=== PATIENT | female | born 1990 | race Caucasian/White ===

== ENCOUNTER 2018-12-13 17:36 | Emergency (ER) | payer OTHER ==
[~2018-12-13] VITALS: Ht 157.5 cm; Wt 50.0 kg
--- NOTE | 2018-12-13 18:00 | ERD ---
ER Documentation Chief Complaint Chief Complaint Passed out HPI Patient is a 28-year-old female who presents with syncope versus seizure. The patient was brought in by ambulance. The patient was getting a routine blood draw at the doctor's office when she felt lightheaded and then "blacked out". There is a report of a "seizure" from the clinic however the patient is never had a seizure before. She did not have any postictal period. She felt like she was having a dream. Blood sugar was 113 by paramedics. She is 13 weeks but has no vaginal bleeding or abdominal pain. She has had syncope in the past with blood draw. She does not remember the name of her doctor. ROS All systems reviewed and are negative except as per history of present illness. Allergies Allergies: Coded Allergies: No Known Allergy (Unverified , 12/13/18) PMhx/Soc Medical and Surgical Hx: pt denies Medical Hx FmHx Family History: No coronary disease Physical Exam Physical Exam Const: No acute distress Head: Atraumatic Eyes: Normal Conjunctiva ENT: Normal External Ears, Nose and Mouth. Neck: Full range of motion. No meningismus. Resp: Clear to auscultation bilaterally Cardio: Regular rate and rhythm, no murmurs Abd: Soft, 13-week abdomen without abdominal pain Skin: No petechiae or rashes Back: No midline or flank tenderness Ext: No cyanosis, or edema Neur: Awake and alert Psych: Normal Mood and Affect Procedures/MDM EKG read by me: Rate/Rhythm: Regular rate and rhythm at a rate of 88 Intervals: Normal Impression: No evidence of ischemia or arrhythmia Patient is a 28-year-old female presents with syncope. I believe what they are describing as seizure is likely myoclonic jerking following the syncope. I do not believe patient requires further work-up or admission at this time. EKG shows no signs of ischemia or arrhythmia. The patient is well-appearing and stable and well-hydrated. She has no OB complaints and is 13 weeks . She will be discharged home to follow-up with her primary doctor within 24 to 48 hours. Departure Diagnosis: Primary Impression: Syncope Syncope type: unspecified Qualified Codes: R55 - Syncope and collapse Condition: Fair Patient Instructions: Causes of Syncope Referrals: Your doctor Additional Instructions: Call your primary care doctor TOMORROW for an appointment during the next 1-2 days.See the doctor sooner or return here if your condition worsens before your appointment time. KARINA NERI MD December 13, 2018 18:00
[2018-12-13 18:01] VITALS: Ht 157.5 cm; Wt 50.0 kg
[2018-12-13 19:00] VITALS: BP 126/78; PULSE 91; RESP 18
== END 2018-12-13 19:07 | disposition home or self-care (01) ==
LOC: E/R 17:36
DX: O26.891 Other specified pregnancy related conditions, first trimester (principal); R55 Syncope and collapse; Z3A.13 13 weeks gestation of pregnancy
CPT/HCPCS: 93005